=== PATIENT | female | born 1975 | race Caucasian/White ===

== ENCOUNTER 2016-11-11 23:03 | Emergency (ER) | payer OTHER ==
[~2016-11-11] VITALS: Ht 167.6 cm; Wt 63.2 kg
[~2016-11-11 23:03] MED LIST: ALPR-411 PO; VNTHFA/IN INH; ZLF/100 PO
[2016-11-11 23:05] VITALS: TEMP 36.5; Ht 167.6 cm; Wt 63.2 kg
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
[2016-11-12 00:47] VITALS: BP 143/73; PULSE 67; O2SAT 98
--- NOTE | 2016-11-12 06:38 | DIAGNOSTIC IMAGING REPORT ---
ULTRASOUND LEFT VENOUS DOPP LOWER EXT UNILAT CLINICAL HISTORY: Left leg pain and swelling. COMPARISON STUDY: No previous studies for comparison. FINDINGS: Real-time and color flow Doppler imaging were performed. Flow was seen within the femoral, popliteal and calf veins with no intraluminal thrombus demonstrated. The saphenous vein is patent. IMPRESSION: No evidence of left lower extremity DVT. Electronically signed by: Arias Turner M.D. 11/12/2016 6:37 AM Dictated Date/Time: 11/12/2016 6:36 AM
== END 2016-11-12 01:16 | disposition home or self-care (01) ==
LOC: C.EDB 23:04 → C.EDC 11-12 01:16
DX: M79.672 Pain in left foot (principal); Z46.89 Encounter for fitting and adjustment of other specified devices; R20.0 Anesthesia of skin; F17.210 Nicotine dependence, cigarettes, uncomplicated; Z79.899 Other long term (current) drug therapy

== ENCOUNTER 2017-01-31 20:19 | Emergency (ER) | payer OTHER ==
[~2017-01-31] VITALS: Ht 167.6 cm; Wt 62.5 kg
[~2017-01-31 20:19] MED LIST changes: -VNTHFA/IN INH
[2017-01-31 20:23] VITALS: TEMP 36.6; Ht 167.6 cm; Wt 62.5 kg
[2017-01-31] MEDS ORDERED: OXYCODONE/ACETAMINOPHEN 5-325 TAB PO STA (20:37)
--- NOTE | 2017-01-31 21:14 | DIAGNOSTIC IMAGING REPORT ---
RIGHT FOOT MIN 3 VIEWS ROUTINE CLINICAL HISTORY: R foot and ankle pain Right COMPARISON: None. DISCUSSION: The bones and joint spaces appear intact. There is no evidence of fracture, dislocation or bony disease. There is no evidence for soft tissue swelling. IMPRESSION: Negative study. Electronically signed by: Khalif Torres M.D. 01/31/2017 9:13 PM Dictated Date/Time: 01/31/2017 9:13 PM
--- NOTE | 2017-01-31 21:15 | DIAGNOSTIC IMAGING REPORT ---
RIGHT ANKLE MIN 3 VIEWS ROUTINE CLINICAL HISTORY: R foot and ankle pain Right pain COMPARISON: None. DISCUSSION: The bones and joint spaces appear intact. There is no evidence of fracture, dislocation or bony disease. There is no evidence for soft tissue swelling. IMPRESSION: Negative study. Electronically signed by: Khalif Torres M.D. 01/31/2017 9:14 PM Dictated Date/Time: 01/31/2017 9:13 PM
[2017-01-31] MEDS ORDERED: NORCO 5/325MG HOME PACK PO ONE (21:45)
[2017-01-31] MEDS ORDERED: HYDR-5688 PO (21:45)
[2017-01-31 21:57] VITALS: BP 150/91; PULSE 106; O2SAT 99
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
== END 2017-01-31 21:59 | disposition home or self-care (01) ==
LOC: C.EDB 20:20 → C.EDD 21:59
DX: M25.571 Pain in right ankle and joints of right foot (principal); Y09 Assault by unspecified means; E11.9 Type 2 diabetes mellitus without complications; F17.200 Nicotine dependence, unspecified, uncomplicated; Z90.710 Acquired absence of both cervix and uterus; Z98.890 Other specified postprocedural states